=== PATIENT | male | born 1960 | race Caucasian/White ===

== ENCOUNTER 2019-09-22 15:52 | Emergency (ER) | payer MEDICAID ==
[~2019-09-22] VITALS: Ht 177.8 cm; Wt 99.8 kg
[2019-09-22 16:01] VITALS: BP_SYST 119
[2019-09-22 16:24] VITALS: BP_SYST 119
== END 2019-09-22 16:26 | disposition home or self-care (01) ==
LOC: SED 15:52
DX: M54.9 Dorsalgia, unspecified (principal); J44.9 Chronic obstructive pulmonary disease, unspecified; I10 Essential (primary) hypertension; E78.5 Hyperlipidemia, unspecified; Z86.73 Personal history of transient ischemic attack (TIA), and cerebral infarction without residual deficits
CPT/HCPCS: 99283